=== PATIENT | female | born 2005 ===

== ENCOUNTER 2024-08-10 18:51 | Emergency (ER) | payer OTHER, SELFPAY ==
--- NOTE | ~2024-08-10 | US_ITS ---
CLINICAL HISTORY: RUQ pain US abdomen limited Comparison: None Findings: The visualized pancreas is normal. The aorta and inferior vena cava are normal caliber. The appearance of the liver suggests fatty infiltration without focal lesion. There is no intrahepatic bile duct dilatation. The common duct is 2.0 mm in diameter. The gallbladder is normal. There is no sonographic Mulligan sign. The main portal vein is antegrade. The right kidney is 10.8 cm in length. No ascites. IMPRESSION: 1. Hepatic steatosis. This document has been electronically signed by: Nikolai Melara MD on 08/10/2024 19:44:17
--- NOTE | ~2024-08-10 | XR_ITS ---
CLINICAL HISTORY: pain 2 view chest x-ray Comparison: None Findings: The lungs are clear. Heart size is normal. No acute fracture. IMPRESSION: 1. No acute findings. This document has been electronically signed by: Nikolai Melara MD on 08/10/2024 19:44:02
[2024-08-10 19:14] VITALS: BP 124/89; PULSE 83; RESP 20; TEMP 36.6; O2SAT 100; BMI 44.3
--- NOTE | 2024-08-10 19:14 | ED_ITS ---
HPI - General Adult General Chief complaint: Abdominal Pain Stated complaint: Rt side flank pain sent by Urgent Care Time Seen by Provider: 08/10/24 22:26 Source: patient Mode of arrival: ambulatory Limitations: no limitations History of Present Illness ED Provider: HPI narrative: Patient obese complaining of pain in right upper abdomen for last 5 days constant pain no relation with food no nausea no vomiting also patient complaining of nasal congestion and cough for last 6 weeks got worse in last 3 days no fever no chills no urinary symptoms Related Data Previous Rx's ?Medication ?Instructions ?Recorded amoxicillin 875 mg-potassium 1 tab PO BID #20 tabs 08/11/24 clavulanate 125 mg tablet ibuprofen 600 mg tablet 600 mg PO Q6H PRN fever or pain 08/11/24 #30 tabs Allergies Allergy/AdvReac Type Severity Reaction Status Date / Time No Known Allergies Allergy Verified 08/10/24 19:15 Review of Systems 2 Review of Systems: Yes all other systems are reviewed and are negative PMFSH Social History Social History Smoked in Last 30 Days: No Advance Directives: No Advance Directives Information Provided: No Patient : No Physical Exam ED Vital Signs: Vital Signs - 24 hr 08/10/24 19:14 08/10/24 22:25 Temperature 98 F 98.2 F Pulse Rate 83 100 Respiratory Rate 20 18 Blood Pressure 124/89 128/83 Pulse Oximetry 100 99 Oxygen Delivery Method Room Air Room Air BMI result Body Mass Index 44.3 Appearance: Alert. Oriented X3. No acute distress. Obese Eyes: No pallor or icterus ENT: Pharynx normal. Oral Mucosa moist clear nasal discharge Neck: Normal inspection. Neck supple. CVS: Normal heart rate and rhythm. Pulses normal. Respiratory: No respiratory distress. Equal air entry bilateral, no wheezing/rales/rhonchi Abdomen: Soft and tender right upper quadrant no rebound tenderness or guarding Bowel sounds are present, no mass palpable, no CVA tenderness Skin: Skin warm and dry. Normal skin color. Normal skin turgor. Extremities: No lower extremity edema. No calf tenderness Neuro: Oriented X 3. No motor deficit. Course Course Course Narrative: RME, this is a rapid medical exam performed by Emre Jones please refer to primary provider for complete H&P- 18-year-old female presents for evaluation abdominal pain. Patient reports that her pain started 5 days ago on Wednesday. Her pain is worse with movement or coughing. She was seen at urgent care today and referred to the ED for an ultrasound. Plan for labs, chest x-ray and ultrasound of the right upper quadrant Medical Decision Making Medical Decision Making [facility] Narrative: Patient obese right upper quadrant pain workup showed hepatic steatosis uses no gallstones labs are stable Differential Diagnosis Differential Diagnoses: The differential diagnosis associated with the presentation includes Cholelithiasis/cholecystitis/renal colic/ Lab Data [facility] Lab Attestation statement: I reviewed the patient's lab results. 08/10/24 19:43 08/10/24 19:43 Labs: Lab Results 08/10/24 08/10/24 08/10/24 Range/Units 19:43 22:55 23:53 WBC 10.9 H (4.8-10.8) X10*3/uL RBC 5.01 (4.20-5.50) X10*6/uL Hgb 14.0 (12.0-16.0) g/dl Hct 42.5 (37.0-47.0) % MCV 84.8 (80.0-98.0) fL MCH 27.9 (27.0-33.0) pg MCHC 32.9 (31.0-35.0) g/dl RDW 14.2 (11.0-16.0) % Plt Count 397 (160-400) X10*3/uL MPV 9.8 (9.4-12.3) fL Immature Gran % (Auto) 0.3 (0.0-0.4) % Neut % (Auto) 59.8 (45-73) % Lymph % (Auto) 30.2 (20-40) % [place] % (Auto) 6.9 (2-11) % Eos % (Auto) 2.3 (0-4) % Baso % (Auto) 0.5 (0-2) % Lymph # (Auto) 3.3 (1.2-4.9) X10*3/uL [place] # (Auto) 0.8 (0.1-1.2) X10*3/uL Eos # (Auto) 0.3 (0.0-0.4) X10*3/uL Baso # (Auto) 0.1 (0.0-0.2) X10*3/uL Abs Immat Gran (auto) 0.03 (0.00-0.03) X10*3/uL Absolute Neuts (auto) 6.6 (2.0-8.3) x10*3/uL Absolute Nucleated RBC 0.000 (0.0-0.012) X10*3/uL Nucleated RBC % (auto) 0.0 (0.0-0.2) /100WBC Sodium 139 (135-145) mmol/L Potassium 3.9 (3.3-5.1) mmol/L Chloride 109 H (96-108) mmol/L Carbon Dioxide 22 (22-29) mmol/L Anion Gap 12 (12-20) BUN 14 (9-16) mg/dL Creatinine 0.68 (0.5-1.4) mg/dL Estim Creat Clear Calc 161.3 Estimated GFR > 60 Random Glucose 92 (60-115) mg/dL Calcium 8.5 (8.4-10.2) mg/dL Total Bilirubin 0.4 (0.0-1.0) mg/dL AST 28 (5-31) U/L ALT 40 H (0-31) U/L Alkaline Phosphatase 91 (39-117) U/L Total Protein 7.7 (6.5-8.0) g/dL Albumin 4.2 (3.5-5.0) g/dL Lipase 11 (8-78) U/L Beta HCG, Quant < 2 mIU/mL Urine Color Yellow Urine Appearance Clear Urine pH 5.5 (5.0-9.0) Ur Specific [place] 1.020 (1.005-1.025) Urine Protein Negative (Neg-Trace) mg/dL Urine Glucose (UA) Negative (Negative) mg/dL Urine Ketones Negative (Negative) mg/dL Urine Blood Negative (Negative) Urine Nitrite Negative (Negative) Ur Leukocyte Esterase Negative (Negative) Urine Test NEGATIVE (NEGATIVE) Influenza Type A (PCR) NEGATIVE (Negative) Influenza Type B (PCR) NEGATIVE (Negative) RSV RNA Qual (PCR) NEGATIVE (Negative) SARS-CoV-2 RNA (RT-PCR) NEGATIVE (Negative) Discharge Plan Discharge Clinical Impression: Abdominal pain, Acute bronchitis Patient Disposition: Home, Self-Care Instructions: Acute Bronchitis (ED), Abdominal Pain (ED) Additional Instructions: Cause of abdominal pain is not clear likely from fatty liver Avoid greasy foods, Tylenol/Motrin for pain Take antibiotic as prescribed for your cough Follow up with your PCP Prescriptions: New amoxicillin-pot clavulanate 875-125 mg tablet 1 tab PO BID Qty: 20 0RF ibuprofen 600 mg tablet 600 mg PO Q6H PRN (Reason: fever or pain) Qty: 30 0RF Print Language: Estonian
[2024-08-10 19:46] LABS: MANUAL DIFF FLAG NO
[2024-08-10 19:48] LABS: Basophils Absolute Auto 0.1 X10*3/uL (0.0-0.2); Basophils Percent Auto 0.5 % (0-2); Eosinophils Absolute Auto 0.3 X10*3/uL (0.0-0.4); Eosinophils Percent Auto 2.3 % (0-4); Hematocrit 42.5 % (37.0-47.0); Imm Gran Abs Auto 0.03 X10*3/uL (0.00-0.03); Imm Gran Pct Auto 0.3 % (0.0-0.4); Lymphocytes Absolute Auto 3.3 X10*3/uL (1.2-4.9); Lymphocytes Percent Auto 30.2 % (20-40); Mean Corpuscular HGB Conc 32.9 g/dl (31.0-35.0); Mean Corpuscular Hemoglobin 27.9 pg (27.0-33.0); Mean Corpuscular Volume 84.8 fL (80.0-98.0); Mean Platelet Volume 9.8 fL (9.4-12.3); Monocytes Absolute Auto 0.8 X10*3/uL (0.1-1.2); Monocytes Percent Auto 6.9 % (2-11); Neutrophils Absolute Auto 6.6 x10*3/uL (2.0-8.3); Neutrophils Percent Auto 59.8 % (45-73); Platelet Count 397 X10*3/uL (160-400); Red Blood Count 5.01 X10*6/uL (4.20-5.50); Red Cell Distribution Width 14.2 % (11.0-16.0); White Blood Count 10.9 X10*3/uL (4.8-10.8)
[2024-08-10 20:31] LABS: Albumin Level 4.2 g/dL (3.5-5.0); Anion Gap 12 (12-20); Calcium 8.5 mg/dL (8.4-10.2); Carbon Dioxide 22 mmol/L (22-29); Chloride 109 mmol/L (96-108); Glucose Random 92 mg/dL (60-115); Potassium 3.9 mmol/L (3.3-5.1); Sodium 139 mmol/L (135-145); Total Protein 7.7 g/dL (6.5-8.0)
[2024-08-10 20:39] LABS: Alanine Aminotransferase 40 U/L (0-31); Alkaline Phosphatase 91 U/L (39-117); Aspartate Amino Transferase 28 U/L (5-31); Bilirubin Total 0.4 mg/dL (0.0-1.0); Blood Urea Nitrogen 14 mg/dL (9-16); Creatinine Clr Calc Pharmacy 161.3; Estimated Glomerular Filt Rate > 60; HCG Quantitative < 2 mIU/mL; Lipase 11 U/L (8-78)
[2024-08-10 22:25] VITALS: BP 128/83; PULSE 100; RESP 18; TEMP 36.8; O2SAT 99
--- NOTE | 2024-08-10 22:27 | PC.NURSE ---
Pt brought to [facility] for treatment assumed care of pt at this time. A&Ox3 skin pwd respirations even unlabored. Endorsing RUQ pain intermittent and non radiating x few days. Reports URI symptoms and sore throat x 2 months prior to onset of this pain. Pain worse with cough. Reports urinary pressure and urgency, recent UTI in June. Denies fever/chills. Labs drawn in [facility], results received. Awaiting primary provider ximenaal, aware of plan care.
[2024-08-10 23:01] LABS: Appearance Urine Clear; Color Urine Yellow; Glucose Urine UA Negative (Negative); Leukocyte Esterase Urine Negative (Negative); Nitrite Urine Negative (Negative); PH 5.5 (5.0-9.0); Urine Blood Negative (Negative); Urine Ketones Negative (Negative); Urine Protein Negative (Neg-Trace)
[2024-08-10 23:02] LABS: UPreg QC Valid YES; Urine Pregnancy NEGATIVE (NEGATIVE)
[2024-08-11 00:38] LABS: Influenza A PCR NEGATIVE (Negative); Influenza B PCR NEGATIVE (Negative); Resp Syncy Virus RNA Qual PCR NEGATIVE (Negative); SARS COV2 PCR INHOUSE NEGATIVE (Negative)
--- NOTE | 2024-08-11 00:39 | PC.NURSE ---
Pt resting on stretcher, NAD awaiting lab results and provider reeeval, aware of plan of care.
[2024-08-11] MEDS: Amoxicillin/Potassium Clav 875 MG TABLET PO (01:06)
[2024-08-11 01:07] VITALS: BP 128/83; PULSE 100; RESP 18; TEMP 36.8; O2SAT 99
== END 2024-08-11 01:08 | disposition home or self-care (01) ==
PROVIDERS: Physician Assistant; Emergency Provider Internal Medicine; PCP Pediatrics Adolescent Medicine
DX: R10.11 Right upper quadrant pain (principal); J20.9 Acute bronchitis, unspecified; R05.9 Cough, unspecified; Z03.818 Encounter for observation for suspected exposure to other biological agents ruled out
CPT/HCPCS: 0241U; 36415; 71046; 76705; 80053; 81003; 81025; 83690; 84702; 85025; 99284

== ENCOUNTER → 2024-08-10 19:15 | Outpatient (BNV) | payer SELFPAY | PROVIDERS: PCP Pediatrics Adolescent Medicine; Visit Provider Specialist | DX: K76.0 Fatty (change of) liver, not elsewhere classified (principal); R07.9 Chest pain, unspecified | CPT/HCPCS: 71046; 76705 ==